=== PATIENT | female | born 1995 | race Caucasian/White ===

== ENCOUNTER → 2022-07-09 11:39 | Outpatient (BNVA) | payer BC, SELFPAY | PROVIDERS: PCP Obstetrics & Gynecology; Visit Provider Internal Medicine Rheumatology | DX: M19.90 Unspecified osteoarthritis, unspecified site (principal); M45.6 Ankylosing spondylitis lumbar region; Q76.0 Spina bifida occulta; Z79.899 Other long term (current) drug therapy; Z11.59 Encounter for screening for other viral diseases; Z11.1 Encounter for screening for respiratory tuberculosis | CPT/HCPCS: 36415; 72100; 72202; 80076; 82306; 82565; 84439; 84443; 85025; 85651; 86140; 86200; 86376; 86480; 86704; 86800; 86803; 86812; 87340 ==

== ENCOUNTER 2022-08-04 16:14 | Outpatient (CLI) | payer BC, SELFPAY ==
--- NOTE | 2022-08-04 16:00 | CT_ITS ---
WS: [id number] CT PELVIS NONCONTRAST. HISTORY: Q89.9 - Congenital malformation, unspecified TECHNIQUE: Contiguous imaging is performed of the pelvis without contrast. Coronal and sagittal refor mats are reviewed. All CT scans at [facility] use at least one of these dose optimization melba hniques: automated exposure control; mA and/or kV adjustment per patient size (includes targeted exam s where dose is matched to clinical indication); or iterative reconstruction. DLP: 489.25 mGy.cm COMPARISON: Prior radiographs 07/09/2022. No destructive bone lesions or fractures. Normal L4-5 and L5-S1 alignment. No pars defects. As descri bed on prior radiographs there is a spina bifida occult at L5 and S1. Wide neuroforamina involving th e S1 vertebral body but also considered normal variant. There is no destructive bone process. No frac tures. SI joints are normal. No fusion or sclerosis. No erosions. Small umbilical hernia contains fat only. There is an IUD appropriately positioned. No free fluid or pelvic mass. CT/CT pelvis wo con [id number] IMPRESSION: 1. No destructive bone lesions involving the pelvis. 2. Spina bifida occulta at L5 and S1.
== END 2022-08-04 16:15 | disposition home or self-care (01) ==
PROVIDERS: PCP Obstetrics & Gynecology; Visit Provider Internal Medicine Rheumatology
DX: Q89.9 Congenital malformation, unspecified (principal); Q05.9 Spina bifida, unspecified
CPT/HCPCS: 72192

== ENCOUNTER → 2022-09-23 16:17 | Outpatient (BNVA) | payer BC, SELFPAY | PROVIDERS: PCP Obstetrics & Gynecology; Referring Provider Internal Medicine Rheumatology; Visit Provider Internal Medicine | DX: R63.5 Abnormal weight gain (principal) | CPT/HCPCS: 36415; 84439; 84443 ==